=== PATIENT | male | born 1950 | race African-American/Black ===

== ENCOUNTER 2021-11-12 10:25 | Emergency (ER) | payer OTHER ==
[~2021-11-12] VITALS: Ht 177.8 cm; Wt 64.0 kg
[2021-11-12 10:29] VITALS: BP 136/83
[2021-11-12 11:25] LABS: BASOPHILS % 1.4 % (0.0-2.0); EOSINOPHILS % 0.5 % (0.0-5.0); HEMATOCRIT. 41.2 % (42.0-52.0); HEMOGLOBIN. 12.5 g/dL (14.0-18.0); LYMPHOCYTES % 23.4 % (20.0-50.0); MEAN CORPUSCULAR HEMOGLOBIN 22.2 pg (28.0-32.0); MEAN CORPUSCULAR VOLUME 73.4 fL (80.0-94.0); MEAN PLATELET VOLUME 8.6 fl (7.4-10.4); MONOCYTES % 6.8 % (2.0-8.0); NEUTROPHILS % 67.9 % (40.0-76.0); PLATELET 181 x1000/uL (130-400); RED BLOOD CELL COUNT 5.61 mill/uL (4.7-6.1)
[2021-11-12 11:34] LABS: CHLORIDE 104 mEq/L (98-107)
[2021-11-12 11:38] LABS: ETHANOL BLOOD < 10 mg/dL
[2021-11-12 11:46] LABS: PLATELET ESTIMATE NORMAL
== END 2021-11-12 12:35 | disposition home or self-care (01) ==
LOC: ER 10:25
DX: F03.90 Unspecified dementia, unspecified severity, without behavioral disturbance, psychotic disturbance, mood disturbance, and anxiety (principal); I50.9 Heart failure, unspecified
CPT/HCPCS: 36415; 80053; 80320; 85025; 99283; G0480